=== PATIENT | female | born 1930 ===

== ENCOUNTER 2021-01-31 11:20 | Emergency (ER) | payer OTHER ==
--- NOTE | 2021-01-31 12:39 | RAD REPORT ---
EXAM DESCRIPTION: Enrique Single View01/31/2021 12:14 pm CLINICAL HISTORY: Shortness of breath COMPARISON: none FINDINGS: The lungs appear clear of acute infiltrate. The heart is mildly enlarged IMPRESSION: No acute abnormalities displayed
--- NOTE | 2021-01-31 12:42 | RAD REPORT ---
EXAM DESCRIPTION: RAD - Ribs Left - 01/31/2021 12:14 pm CLINICAL HISTORY: Rib pain FINDINGS: Limited two view series No fracture seen
--- NOTE | 2021-01-31 12:44 | RAD REPORT ---
EXAM DESCRIPTION: RAD -Hand Left 3 View - 01/31/2021 12:14 pm CLINICAL HISTORY: Left hand pain status post injury FINDINGS: Moderately displaced fracture involves the mid to distal aspect of the first metacarpal. N o dislocation noted
--- NOTE | 2021-01-31 13:07 | EDPHYS ---
Physician Documentation [facility] Name: Leonard Luke Age: 89 yrs Sex: Female : 1930 Arrival Date: 01/31/2021 Time: 11:21 Bed 4 Private MD: ED Physician Reji Hernandez HPI: 01/31 12:49 This 89 yrs old Female presents to ER via EMS with complaints of Fall Injury. jr8 12:49 Details of fall: The patient fell from an upright position, while standing. Onset: The jr8 symptoms/episode began/occurred acutely, today. Associated injuries: The patient sustained left thumb, left mid back over the ribs. Severity of symptoms: At their worst the symptoms were moderate. The patient has not experienced similar symptoms in the past. The patient has not recently seen a physician. Patient stated that she occasionally has episodes of brief vertigo with quick movements and change in position. Stated that she had one causing her to lose balance and fall. Denies hitting head or neck. No LOC . Historical: - Allergies: 11:26 montelukast; bp - Home Meds: 11:26 Lisinopril Oral [Active]; Metoprolol Tartrate Oral [Active]; Synthroid Oral [Active]; bp - PMHx: 11:26 Hypertension; Hypothyroidism; bp - Immunization history:: Adult Immunizations up to date. - Social history:: Smoking status: . ROS: 12:49 Eyes: Negative for injury, pain, redness, and discharge, ENT: Negative for injury, jr8 pain, and discharge, Neck: Negative for injury, pain, and swelling, Cardiovascular: Negative for chest pain, palpitations, and edema, Respiratory: Negative for shortness of breath, cough, wheezing, and pleuritic chest pain, Abdomen/GI: Negative for abdominal pain, nausea, vomiting, diarrhea, and constipation, Skin: Negative for injury, rash, and discoloration, Neuro: Negative for headache, weakness, numbness, tingling, and seizure. 12:49 Back: Positive for pain at rest, pain with movement, of the left mid back. 12:49 MS/extremity: Positive for decreased range of motion, pain, tenderness, of the left hand. Exam: 12:49 Head/Face: Normocephalic, atraumatic. Eyes: Pupils equal round and reactive to light, jr8 extra-ocular motions intact. Lids and lashes normal. Conjunctiva and sclera are non-icteric and not injected. Cornea within normal limits. Periorbital areas with no swelling, redness, or edema. ENT: Nares patent. No nasal discharge, no septal abnormalities noted. Tympanic membranes are normal and external auditory canals are clear. Oropharynx with no redness, swelling, or masses, exudates, or evidence of obstruction, uvula midline. Mucous membranes moist. Neck: Trachea midline, no thyromegaly or masses palpated, and no cervical lymphadenopathy. Supple, full range of motion without nuchal rigidity, or vertebral point tenderness. No Meningismus. Chest/axilla: Normal chest wall appearance and motion. Nontender with no deformity. No lesions are appreciated. Cardiovascular: Regular rate and rhythm with a normal S1 and S2. No gallops, murmurs, or rubs. Normal PMI, no JVD. No pulse deficits. Respiratory: Lungs have equal breath sounds bilaterally, clear to auscultation and percussion. No rales, rhonchi or wheezes noted. No increased work of breathing, no retractions or nasal flaring. Abdomen/GI: Soft, non-tender, with normal bowel sounds. No distension or tympany. No guarding or rebound. No evidence of tenderness throughout. Skin: Warm, dry with normal turgor. Normal color with no rashes, no lesions, and no evidence of cellulitis. Neuro: Awake and alert, GCS 15, oriented to person, place, time, and situation. Cranial nerves II-XII grossly intact. Motor strength 5/5 in all extremities. Sensory grossly intact. Cerebellar exam normal. Normal gait. 12:49 Back: pain, that is mild, of the left mid back, ROM is painful, normal spinal alignment noted, CVA tenderness, is absent, vertebral tenderness, is not appreciated, mild abrasion to left mid back noted as well. 12:49 Musculoskeletal/extremity: Extremities: grossly normal except: noted in the left hand: decreased ROM, pain, tenderness, Circulation is intact in all extremities. Sensation intact. Vital Signs: 11:21 BP 210 / 70; Pulse 68; Resp 17; Temp 97.5; Pulse Ox 94% on R/A; bp 14:28 BP 190 / 68; Pulse 67; Resp 16; Pulse Ox 96% ; bp Procedures: 13:04 Splinting: Splint applied to left thumb using Orthoglass splint, applied by myself. jr8 tech. Examined by me, post splint application: neurovascular intact, 2+ distal pulses palpable, brisk capillary refill noted, Patient tolerated well. MDM: 11:26 Patient medically screened. [facility] 12:54 Data reviewed: vital signs, nurses notes, radiologic studies, plain films. Data jr8 interpreted: Pulse oximetry: on room air is 94 %. Interpretation: acceptable. Counseling: I had a detailed discussion with the patient and/or guardian regarding: the historical points, exam findings, and any diagnostic results supporting the discharge/admit diagnosis, radiology results, the need for outpatient follow up, a hand specialist, to return to the emergency department if symptoms worsen or persist or if there are any questions or concerns that arise at home. 01/31 11:32 Order name: XRAY Chest (1 view); Complete Time: 12:40 8 01/31 11:32 Order name: XRAY Ribs LEFT; Complete Time: 12:52 8 01/31 11:32 Order name: XRAY Hand LEFT 3 View; Complete Time: 12:52 8 01/31 12:54 Order name: Thumb Spica Splint; Complete Time: 13:21 jr8 Administered Medications: No medications were administered Disposition: 01/31/21 13:06 Discharged to Home. Impression: Displaced fracture of shaft of first metacarpal bone, left hand. - Condition is Stable. - Discharge Instructions: Metacarpal Fracture. - Medication Reconciliation Form, Thank You Letter, Antibiotic Education, Prescription Opioid Use form. - Follow up: Private Physician; When: 1 week; Reason: Recheck today's complaints, Continuance of care, Re-evaluation by your physician. - Problem is new. - Symptoms have improved. Addendum: 02/02/2021 07:10 Co-signature as Attending Physician, Reji Hernandez MD I agree with the assessment and c cunningham plan of care. Signatures: Dispatcher [employer] Reji Olea MD MD cha Roszak, Josh, PA PA jr8 Андрей Sheehan, RN RN bp Corrections: (The following items were deleted from the chart) 01/31 14:31 13:06 01/31/2021 13:06 Discharged to Home. Impression: Displaced fracture of shaft of bp first metacarpal bone, left hand. Condition is Stable. Forms are Medication Reconciliation Form, Thank You Letter, Antibiotic Education, Prescription Opioid Use. Follow up: Private Physician; When: 1 week; Reason: Recheck today's complaints, Continuance of care, Re-evaluation by your physician. Problem is new. Symptoms have improved. jr8
--- NOTE | 2021-01-31 13:07 | ER ---
Nurse's Notes [facility] Name: Leonard Luke Age: 89 yrs Sex: Female : 1930 Arrival Date: 01/31/2021 Time: 11:21 Bed 4 Private MD: Diagnosis: Displaced fracture of shaft of first metacarpal bone, left hand Presentation: 01/31 11:21 Chief complaint: EMS states: VERTIGO FALL AT HOME, H/O SAME. PAIN TO LEFT THUMB, LEFT bp ELBOW AND LEFT RIBS. Coronavirus screen: At this time, the client does not indicate any symptoms associated with coronavirus-19. Ebola Screen: No symptoms or risks identified at this time. Initial Sepsis Screen: Does the patient meet any 2 criteria? No. Patient's initial sepsis screen is negative. Does the patient have a suspected source of infection? No. Patient's initial sepsis screen is negative. Risk Assessment: Do you want to hurt yourself or someone else? Patient reports no desire to harm self or others. Onset of symptoms is unknown. 11:21 Method Of Arrival: EMS: [facility] bp 11:21 Acuity: MARIPOSA 3 bp Triage Assessment: 11:26 General: Appears distressed, uncomfortable, Behavior is cooperative, appropriate for bp age, anxious. Pain: Complains of pain in left lateral posterior chest, left wrist and left elbow. EENT: No deficits noted. Neuro: No deficits noted. Cardiovascular: No deficits noted. Respiratory: No deficits noted. GI: No signs and/or symptoms were reported involving the gastrointestinal system. : No signs and/or symptoms were reported regarding the genitourinary system. Derm: No deficits noted. Musculoskeletal: Bony deformity noted of left thumb. Historical: - Allergies: 11:26 montelukast; bp - Home Meds: 11:26 Lisinopril Oral [Active]; Metoprolol Tartrate Oral [Active]; Synthroid Oral [Active]; bp - PMHx: 11:26 Hypertension; Hypothyroidism; bp - Immunization history:: Adult Immunizations up to date. - Social history:: Smoking status: . Screenin:28 Abuse screen: Denies threats or abuse. Denies injuries from another. Nutritional bp screening: No deficits noted. Tuberculosis screening: No symptoms or risk factors identified. Fall Risk Fall in past 12 months (25 points). Secondary diagnosis (15 points) No IV (0 pts). Ambulatory Aid- None/Bed Rest/Nurse Assist (0 pts). Gait- Normal/Bed Rest/Wheelchair (0 pts) Mental Status- Oriented to own ability (0 pts). Assessment: 11:25 General: SEE TRIAGE NOTE. bp 13:00 Reassessment: No changes from previously documented assessment. Patient and/or family bp updated on plan of care and expected duration. Pain level reassessed. 14:27 Reassessment: PT D/C HOME VIA W/C WITH FAMILY, DX WITH LEFT 1ST METACARPAL FX. bp Vital Signs: 11:21 BP 210 / 70; Pulse 68; Resp 17; Temp 97.5; Pulse Ox 94% on R/A; bp 14:28 BP 190 / 68; Pulse 67; Resp 16; Pulse Ox 96% ; bp ED Course: 11:21 Patient arrived in ED. bp 11:23 Triage completed. bp 11:25 Reji Hernandez MD is Attending Physician. devyn 11:26 Arm band placed on. bp 11:29 Patient has correct armband on for positive identification. Bed in low position. Call bp light in reach. Side rails up X2. 11:31 Avelino Kennedy PA [facility]. jrGerardo 12:14 XRAY Chest (1 view) In Process Unspecified. EDMS 12:14 XRAY Ribs LEFT In Process Unspecified. EDMS 12:14 XRAY Hand LEFT 3 View In Process Unspecified. EDMS 12:56 Андрей Sheehan, RN is Primary Nurse. bp 13:30 Orthoglass splint: Thumb spica splint applied on left forearm. bp 14:27 No provider procedures requiring assistance completed. Patient did not have IV access bp during this emergency room visit. Administered Medications: No medications were administered Outcome: 13:06 Discharge ordered by MD. hickey 14:27 Discharged to home via wheelchair. bp 14:27 Condition: stable 14:27 Discharge instructions given to patient, family, Instructed on discharge instructions, follow up and referral plans. Demonstrated understanding of instructions, follow-up care, splint care. 14:31 Patient left the ED. bp Signatures: Dispatcher [employer] EDIL Reji Hernandez MD MD cha Roszak, Josh, PA PA jr8 Peltier, Brian, RN RN bp
[2021-01-31 14:36] VITALS: TEMP 97.5
[2021-01-31 14:37] VITALS: BP 190/68; O2SAT 96
== END 2021-01-31 14:31 | disposition home or self-care (01) ==
LOC: ER 11:20
PROC: 2W3DX1Z Immobilization of Left Lower Arm using Splint (ICD-10-PCS; principal; 2021-01-31)
DX: S62.242A Displaced fracture of shaft of first metacarpal bone, left hand, initial encounter for closed fracture (principal); M54.6 Pain in thoracic spine; W19.XXXA Unspecified fall, initial encounter; I10 Essential (primary) hypertension; E03.9 Hypothyroidism, unspecified
CPT/HCPCS: 71045; 99283